=== PATIENT | male | born 1965 | race Caucasian/White ===

== ENCOUNTER 2021-07-23 06:57 | Day surgery (SDC) | payer OTHER ==
[~2021-07-23] VITALS: Ht 180.3 cm; Wt 101.4 kg
[~2021-07-23 06:57] MED LIST: SODIUM CHLORIDE 0.9% 0 ML ONE; SODIUM CHLORIDE 0.9% 1,000 ML IV ONE; SODIUM CHLORIDE 0.9% 1,000 ML ONE
[2021-07-23] MEDS ORDERED: BENZOCAINE 20% 50 MCG/SPRAY 57 GM TP ONE (06:58)
[2021-07-23] MEDS ORDERED: LIDOCAINE 2% 30 ML JELLY TP ONE (06:58)
[2021-07-23] MEDS ORDERED: ALBUTEROL SULFATE 2.5 MG/0.5 ML NEB SOLUTION NEB ONE (06:58)
[2021-07-23] MEDS ORDERED: MIDAZOLAM HCL 2 MG/2 ML VIAL ONE (07:32)
[2021-07-23] MEDS ORDERED: FentaNYL CITRATE PF 100 MCG/2 ML VIAL ONE (07:32)
[2021-07-23 07:39] LABS: COVID AG,FIA SOURCE NASOPHARYNGEAL
[2021-07-23 08:17] LABS: GLUCOMETER DEV NAME(LOC) SDS.; GLUCOSE,POINT OF CARE 111 MG/DL (70-110)
[2021-07-23] MEDS ORDERED: SULF500T60 PO (08:24)
[2021-07-23] MEDS ORDERED: CARB100 PO (08:24)
[2021-07-23] MEDS ORDERED: ALLO-45 PO (08:24)
[2021-07-23] MEDS ORDERED: CHOL500013 PO (08:24)
[2021-07-23] MEDS ORDERED: CHL25 PO (08:24)
[2021-07-23] MEDS ORDERED: ASPI-1444 PO (08:24)
[2021-07-23] MEDS ORDERED: MethylPREDNISolone SOD SUCC 125 MG/2 ML VIAL IVP ONE (09:30)
[2021-07-23] MEDS ORDERED: MethylPREDNISolone SOD SUCC 125 MG/2 ML VIAL ONE (09:50)
[2021-07-23] MEDS ORDERED: OXYGEN THERAPY IH SCH (20:00)
== END 2021-07-23 11:30 | disposition home or self-care (01) ==
LOC: SURGERY 06:57
PROVIDERS: ATTEND Internal Medicine Critical Care Medicine
DX: J38.4 Edema of larynx (principal); B37.0 Candidal stomatitis; I10 Essential (primary) hypertension; M19.90 Unspecified osteoarthritis, unspecified site; E78.00 Pure hypercholesterolemia, unspecified; G47.30 Sleep apnea, unspecified; Z79.899 Other long term (current) drug therapy; Z87.442 Personal history of urinary calculi; Z98.890 Other specified postprocedural states
CPT/HCPCS: 31623; 31624; 71045; 82962; 87015; 87070; 87077; 87101; 87186; 87205; 87206; 87220; 87426; 88108; 88184; 88185; 88312; C9803; J2250; J2930; J3010; J7030; J7613